=== PATIENT | male | born 1985 | race Hispanic/Latino ===

== ENCOUNTER 2021-09-19 10:27 | Emergency (ER) | payer OTHER ==
[~2021-09-19] VITALS: Ht 172.7 cm; Wt 70.3 kg
[2021-09-19] MEDS ORDERED: ONDANSETRON 4MG INJ IVP PRN (12:00)
[2021-09-19] MEDS: MORPHINE 4 MG SYG IVP SCH ×2 (12:10→16:39)
[2021-09-19 16:20] VITALS: BP 115/70
== END 2021-09-19 15:40 | disposition short-term general hospital (02) ==
LOC: EDH 10:27
DX: S92.001A Unspecified fracture of right calcaneus, initial encounter for closed fracture (principal); X58.XXXA Exposure to other specified factors, initial encounter; Y93.89 Activity, other specified; Y92.89 Other specified places as the place of occurrence of the external cause; Y99.8 Other external cause status
CPT/HCPCS: 29515; 73610; 73630; 73700; 96374; 96375; 96376; 99285; J2270 ×2; J2405